=== PATIENT | male | born 1965 | race Caucasian/White ===

== ENCOUNTER 2020-04-18 15:22 | Emergency (ER) | payer OTHER ==
[~2020-04-18] VITALS: Ht 177.8 cm; Wt 85.5 kg
--- NOTE | 2020-04-18 16:00 | NUR ---
CAREER CONSULTANT: PT TO ROOM FROM JOHNATHAN ALCANTARA
--- NOTE | 2020-04-18 16:12 | NUR ---
THIS IS A 55 YO MALE COMING IN FOR INCREASED PAIN OVER THE LAST COUPLE DAYS FROM ANAL FISSURE. PATIENT WAS SEEN BY DR. BERGERON FOR HEMERROIDS, AND WAS DIAGNOSED WITH AN ANAL FISSURE 2 WEEKS AGO, SENT HOME [facility]. PATIENT STATES THEY WERE HELPIGN AT FIRST, BUT THE PAIN IS GETTING WORSE. STATES "THERE WAS JUST A TINY BIT OF BLOOD IN MY STOOL THIS MORNING", LBM TODAY "IT JUST HURTS SO BAD WHEN I HAVE TO GO". PATIENT MORE COMFORTABLE STANDING AT THIS TIME, WILL CONTINUE TO MONITOR.
[2020-04-18 16:39] VITALS: BP 139/90
--- NOTE | 2020-04-18 17:24 | NUR ---
[facility] - 04/18/20 at 1754 by ADAM SHAWANDA TOLBERT IN ROOM FOR [facility]ENN[facility]
--- NOTE | 2020-04-18 17:37 | NUR ---
RESIDENT IN ROOM
--- NOTE | 2020-04-18 17:54 | NUR ---
SHAWANDA TOLBERT IN ROOM
--- NOTE | 2020-04-18 18:55 | NUR ---
Patient given discharge instructions and they have confirmed that they understand the instructions. Patient ambulatory with steady gait.
== END 2020-04-18 18:57 | disposition home or self-care (01) ==
LOC: ED 18:30
DX: K64.8 Other hemorrhoids (principal); K64.4 Residual hemorrhoidal skin tags
CPT/HCPCS: 99283

== ENCOUNTER → 2020-09-13 | Outpatient (CLI) | payer OTHER ==
[~2020-09-13] MED LIST: CHOL20002 PO; MULT-658 PO
== END | disposition home or self-care (01) ==
LOC: STAR 09:09
PROVIDERS: ATTEND Surgery
DX: Z20.828 Contact with and (suspected) exposure to other viral communicable diseases (principal)
CPT/HCPCS: 87635

== ENCOUNTER 2020-09-18 06:36 | Day surgery (SDC) | payer OTHER ==
[~2020-09-18] VITALS: Ht 177.8 cm; Wt 83.9 kg
[2020-09-18] MEDS ORDERED: LACTATED RINGERS 1,000 ML IV SCH (07:00)
[2020-09-18 07:20] VITALS: BP 124/83
[2020-09-18] MEDS ORDERED: BUPIVACAINE/PF 0.5% ONE (07:26)
[2020-09-18] MEDS ORDERED: MIDAZOLAM 1 MG/ML, 2ML ONE (07:40)
[2020-09-18] MEDS ORDERED: FENTANYL PF 250 MCG/5ML ONE (07:40)
[2020-09-18] MEDS ORDERED: CEFAZOLIN 1,000 MG ONE (07:54)
[2020-09-18] MEDS ORDERED: ONDANSETRON 2MG/ML, 2ML ONE (07:54)
[2020-09-18] MEDS ORDERED: DEXAMETHASONE 4 MG/ML, 1ML ONE (07:54)
[2020-09-18] MEDS ORDERED: KETOROLAC 30 MG/1 ML ONE (07:54)
[2020-09-18] MEDS ORDERED: LIDOCAINE-MPF 2% ,5ML ONE (07:54)
[2020-09-18] MEDS ORDERED: PROPOFOL 10 MG/ML, 20ML ONE (07:54)
[2020-09-18] MEDS ORDERED: GLYCOPYRROLATE 0.2MG/1ML, 5ML ONE (07:54)
[2020-09-18] MEDS ORDERED: SUCCINYLCHOLINE 20 MG/ML, 10ML ONE (07:54)
[2020-09-18] MEDS ORDERED: NEOSTIGMINE 1 MG/ML, 10ML ONE (07:54)
[2020-09-18] MEDS ORDERED: ROCURONIUM 10MG/ML,5ML ONE (07:54)
[2020-09-18] MEDS ORDERED: LIDOCAINE 4%, 4 ML SYR/CANN TP ONE (07:54)
[2020-09-18] MEDS ORDERED: EPHEDRINE 50 MG/ML, 1ML IVPush PRN (08:00)
[2020-09-18] MEDS ORDERED: HYDROmorphone 1 MG/ML, 1ML INJ IVPush PRN (08:00)
[2020-09-18] MEDS ORDERED: PROMETHAZINE 25 MG/ML, 1ML IVPush PRN (08:00)
[2020-09-18] MEDS ORDERED: ONDANSETRON 2MG/ML, 2ML IVPush PRN (08:00)
[2020-09-18] MEDS ORDERED: OXYcodone 5 MG/5 ML ORAL.SOL UDC PO PRN (08:00)
[2020-09-18] MEDS ORDERED: FENTANYL PF 100 MCG/2ML IV PRN (08:00)
[2020-09-18] MEDS ORDERED: LABETALOL 5MG/ML, 20ML IV PRN (08:00)
[2020-09-18] MEDS ORDERED: ACETAMINOPHEN 325 MG TABLET PO PRN (08:00)
[2020-09-18] MEDS ORDERED: METHOCARBAMOL 1,000 MG in DEXTROSE 5% 100 ML IV PRN (08:00)
[2020-09-18] MEDS ORDERED: hydrALAzine 20 MG/ML, 1ML IV PRN (08:00)
[2020-09-18] MEDS ORDERED: LORazepam 2 MG/ML, 1ML IVPush PRN (08:00)
[2020-09-18] MEDS ORDERED: MEPERIDINE/PF 25MG/0.5ML IVPush PRN (08:00)
[2020-09-18] MEDS ORDERED: PROPOFOL 50 ML ONE (08:13)
[2020-09-18] MEDS ORDERED: MEPERIDINE/PF 25MG/ML,1ML ONE (09:16)
== END 2020-09-18 11:05 | disposition home or self-care (01) ==
LOC: OUT 06:36
PROVIDERS: ATTEND Surgery
DX: K40.90 Unilateral inguinal hernia, without obstruction or gangrene, not specified as recurrent (principal); Z79.899 Other long term (current) drug therapy; Z91.018 Allergy to other foods; Z98.890 Other specified postprocedural states; Z80.0 Family history of malignant neoplasm of digestive organs
CPT/HCPCS: 49650; C1781; J0330; J0690; J1100; J1885; J2175; J2250; J2405; J2704; J2710; J3010; J7120; S2900